=== PATIENT | female | born 1955 | race Caucasian/White ===

== ENCOUNTER → 2020-05-06 | Outpatient (CLI) | payer MEDICARE | END | disposition home or self-care (01) | LOC: STAR 13:07 | PROVIDERS: ATTEND Anesthesiology | DX: Z01.818 Encounter for other preprocedural examination (principal); Z11.59 Encounter for screening for other viral diseases | CPT/HCPCS: 36415; 87635 ==

== ENCOUNTER 2020-05-10 06:38 | Day surgery (SDC) | payer MEDICARE ==
[~2020-05-10] VITALS: Ht 182.9 cm; Wt 71.6 kg
[2020-05-10] MEDS ORDERED: CHLORHEXIDINE 15 ML UDC MM ONE (07:30)
[2020-05-10] MEDS ORDERED: LACTATED RINGERS 1,000 ML IV SCH (07:31)
[2020-05-10 07:57] VITALS: BP 120/84
[2020-05-10] MEDS ORDERED: FURO20TA3 PO (07:57)
[2020-05-10] MEDS ORDERED: OMEP-110 PO (07:57)
[2020-05-10] MEDS ORDERED: CYAN-10 PO (07:57)
[2020-05-10 08:02] LABS: BASOPHILS # (AUTO) 0.03 x10^3/uL (0-0.1); BASOPHILS % (AUTO) 0 % (0-1); EOSINOPHILS # (AUTO) 0.09 x10^3/uL (0-0.4); EOSINOPHILS % (AUTO) 2 % (1-7); LYMPHOCYTES # (AUTO) 1.56 x10^3/uL (1-3.4); LYMPHOCYTES % (AUTO) 27 % (22-44); MD NO; MEAN CORPUSCULAR HEMOGLOBIN 28.6 pg (27.0-34.8); MEAN CORPUSCULAR HGB CONC 32.8 g/dL (32.4-35.8); MEAN CORPUSCULAR VOLUME 87.2 fL (80-100); MEAN PLATELET VOLUME 6.8 fL (7.4-10.4); MONOCYTES # (AUTO) 0.32 x10^3/uL (0.2-0.8); MONOCYTES % (AUTO) 6 % (2-9); NEUTROPHILS # (AUTO) 3.71 x10^3/uL (1.8-6.8); NEUTROPHILS % (AUTO) 65 % (42-75); PLATELET COUNT 315 x10^3/uL (130-400); RED BLOOD COUNT 4.94 x10^6/uL (3.82-5.3); RED CELL DISTRIBUTION WIDTH 13.5 % (9.6-15.2)
[2020-05-10] MEDS ORDERED: PROPOFOL 50 ML ONE (08:08)
[2020-05-10] MEDS ORDERED: MIDAZOLAM 1 MG/ML, 2ML ONE (08:08)
[2020-05-10 08:09] LABS: ANION GAP 8 mmol/L (5-15); CALCIUM 9.2 mg/dL (8.5-10.1); CHLORIDE 109 mmol/L (98-107); CREATININE 0.82 mg/dL (0.55-1.02)
[2020-05-10] MEDS ORDERED: ONDANSETRON 2MG/ML, 2ML IVPush PRN (08:30)
[2020-05-10] MEDS ORDERED: PROMETHAZINE 25 MG/ML, 1ML IVPush PRN (08:30)
[2020-05-10] MEDS ORDERED: FENTANYL PF 100 MCG/2ML IV PRN (08:30)
== END 2020-05-10 10:30 | disposition home or self-care (01) ==
LOC: OUT 06:38
PROVIDERS: ATTEND Internal Medicine Gastroenterology
DX: D12.5 Benign neoplasm of sigmoid colon (principal); K57.30 Diverticulosis of large intestine without perforation or abscess without bleeding; K64.0 First degree hemorrhoids; Z79.899 Other long term (current) drug therapy; Z86.010 Personal history of colon polyps; Z98.0 Intestinal bypass and anastomosis status
CPT/HCPCS: 36415; 45380; 45381; 80048; 85025; 88305; 93005; A4648; J2250; J2704; J7120